=== PATIENT | female | born 1990 | race American Indian/Alaskan Native ===

== ENCOUNTER 2017-12-07 16:16 | Emergency (ER) | payer BC ==
[2017-12-07 16:16] VITALS: BMI 27.3
[2017-12-07 16:49] VITALS: O2SAT 99
--- NOTE | 2017-12-07 17:22 | ED PDOC ---
Arrival/HPI - General Chief Complaint: Female Genitourinary Time Seen by Provider: 12/07/17 17:17 Historian: Patient - History of Present Illness Narrative History of Present Illness (Text): 12/07/17 17:00 27 year old female, with past medical history of hypertension and asthma, presents to the Emergency department for evaluation of clitoral frenulum laceration sustained prior to arrival. Patient states she had a piercing to the clitoral frenulum a year ago, which ripped off from the area secondary to sexual intercourse today. Patient informs immediate bleeding and discomfort to the area, which progressively improved. Patient currently informs mild discomfort to the area but denies any bleeding. patient denies any internal vaginal bleeding, fever, chills, nausea, vomiting, diarrhea, abdominal pain, dysuria, hematuria, chest pain, shortness of breath, back pain or any other complaints. Time/Duration: Prior to Arrival Symptom Onset: Gradual Symptom Course: Improving Activities at Onset: Other (Sexual intercourse) Past Medical History - Provider Review Nursing Documentation Reviewed: Yes - Infectious Disease Hx of Infectious Diseases: None - Tetanus Immunization Tetanus Immunization: Unknown - Reproductive Menopause: No - Cardiac Hx Hypertension: Yes - Pulmonary Hx Respiratory Disorders: Yes Hx Asthma: Yes - Psychiatric Hx Substance Use: No - Anesthesia Hx Anesthesia: No Family/Social History - Physician Review Nursing Documentation Reviewed: Yes Family/Social History: Unknown Family HX Smoking Status: Never Smoked Hx Alcohol Use: Yes Hx Substance Use: No Allergies/Home Meds Allergies/Adverse Reactions: Allergies tomato Allergy (Verified 08/23/15 19:29) URTICARIA Home Medications: Home Meds Medication Instructions Recorded Confirmed Albuterol HFA [Ventolin HFA 90 1 puff IH QID 03/09/16 03/09/16 mcg/actuation (8 g)] Metoprolol Tartrate [Lopressor] 1 tab PO DAILY 03/09/16 03/09/16 Review of Systems - Physician Review All systems were reviewed & negative as marked: Yes - Review of Systems Constitutional: absent: Fevers Respiratory: absent: SOB, Cough Cardiovascular: absent: Chest Pain, WALKER Gastrointestinal: absent: Abdominal Pain, Diarrhea, Nausea, Vomiting Genitourinary Female: absent: Dysuria, Hematuria Musculoskeletal: absent: Back Pain, Neck Pain Skin: Laceration (clitoral frenulum laceration). absent: Rash Neurological: absent: Headache, Dizziness Endocrine: absent: Polyuria Psychiatric: absent: Anxiety, Depression Physical Exam Vital Signs Reviewed: Yes Vital Signs Temp Pulse Resp BP Pulse Ox 12/07/17 16:16 98 F 90 19 124/65 99 Temperature: Afebrile Blood Pressure: Normal Pulse: Regular Respiratory Rate: Normal Appearance: Positive for: Well-Appearing, Non-Toxic, Comfortable Pain Distress: None Mental Status: Positive for: Alert and Oriented X 3 - Systems Exam Head: Present: Atraumatic, Normocephalic Mouth: Present: Moist Mucous Membranes Neck: Present: Normal Range of Motion Respiratory/Chest: Present: Clear to Auscultation, Good Air Exchange. No: Re spiratory Distress, Accessory Muscle Use Cardiovascular: Present: Regular Rate and Rhythm, Normal S1, S2. No: Murmurs Abdomen: No: Tenderness, Distention, Peritoneal Signs Genitourinary/Pelvic Exam: Present: Other (EMT domitila present as Tele Rn. Linear 1.5cm laceration noted through the right clitoral frelunum with sepa ration of the wound edges. No active bleeding. Minimal tenderness to the area. Positive edema. ). No: Vaginal Discharge, Vaginal Bleeding, Vaginal Lesions Back: Present: Normal Inspection Upper Extremity: Present: Normal Inspection. No: Cyanosis, Edema Lower Extremity: Present: Normal Inspection. No: Edema Neurological: Present: GCS=15, Speech Normal Skin: Present: Warm, Dry, Normal Color. No: Rashes Psychiatric: Present: Alert, Oriented x 3 Medical Decision Making ED Course and Treatment: 12/07/17 17:30 Impression: 27 year old female presents to the Emergency department for evaluation of clitoral frelunum laceration. Differential Diagnosis included but are not limited to: Laceration Plan: -- Laceration Repair -- Reassess and disposition Prior Visits: Notes and results from previous visits were reviewed. Progress Notes: 12/07/17 17:[address] Castillo, plastic surgeon. Will come tot the Emergency department for laceration repair. 12/07/17 19:[address] Castillo in er. pt to be discharged home to f/u with him in 1 week. d/c on clindamycin. clindamcyin given in er. Discharge instructions discussed in depth with the patient. Patient verbalizes understanding of discharge instructions and need for immediate followup. all aspects of this case were discussed the attending of record. impression; laceration, labia Motrin every 6 hours as needed for pain Clindamycin 1 tablet 3 times daily 7 days Follow-up with the plastic surgeon in 1 week Return immediately if symptoms worsen persist or if new concerning symptoms develop - Scribe Statement The provider has reviewed the documentation as recorded by the Scribe Aby Rojas. All medical record entries made by the Scribe were at my direction and personally dictated by me. I have reviewed the chart and agree that the record accurately reflects my personal performance of the history, physical exam, medical decision making, and the department course for this patient. I have also personally directed, reviewed, and agree with the discharge instructions and disposition. Disposition/Present on Arrival - Present on Arrival Any Indicators Present on Arrival: No History of DVT/PE: No History of Uncontrolled Diabetes: No Urinary Catheter: No History of Decub. Ulcer: No History Surgical Site Infection Following: None - Disposition Have Diagnosis and Disposition been Completed?: Yes Diagnosis: Laceration of labia minora Disposition: HOME/ ROUTINE Disposition Time: 18:04 Patient Plan: Discharge Condition: GOOD Discharge Instructions (ExitCare): Laceration Repair Additional Instructions: Motrin every 6 hours as needed for pain Clindamycin 1 tablet 3 times daily 7 days Follow-up with the plastic surgeon in 1 week Return immediately if symptoms worsen persist or if new concerning symptoms develop Prescriptions: Clindamycin [Cleocin] 150 mg PO TID #21 cap Ibuprofen [Motrin] 600 mg PO Q6H PRN #20 tab PRN Reason: pain/fever reduction Referrals: Clement Du MD [Primary Care Provider] - Follow up with primary Kenneth Castillo MD [Staff Provider] - Follow up with primary Forms: [employer] [facility] (Bermudian), WORK NOTE
[2017-12-07 18:12] VITALS: RESP 18
[2017-12-07 22:53] VITALS: BP 124/73; PULSE 72; TEMP 98.6
== END 2017-12-07 19:32 | disposition home or self-care (01) ==
LOC: ED 16:16
DX: S31.41XA Laceration without foreign body of vagina and vulva, initial encounter (principal); X58.XXXA Exposure to other specified factors, initial encounter; Y92.89 Other specified places as the place of occurrence of the external cause

== ENCOUNTER 2018-03-05 23:14 | Emergency (ER) | payer BC ==
[2018-03-05 23:15] VITALS: BMI 27.3
[2018-03-05 23:27] VITALS: RESP 18
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
[2018-03-06 01:15] VITALS: BP 108/69; PULSE 78; TEMP 98; O2SAT 99
== END 2018-03-06 01:17 | disposition home or self-care (01) ==
LOC: ED 23:14
DX: M54.9 Dorsalgia, unspecified (principal); V49.49XA Driver injured in collision with other motor vehicles in traffic accident, initial encounter; Y92.410 Unspecified street and highway as the place of occurrence of the external cause
CPT/HCPCS: 81025; 96372; 99283; J1885